=== PATIENT | male | born 1945 | race Two or more races ===

== ENCOUNTER 2016-09-14 19:37 | Observation (INO) | payer MEDICARE ==
--- NOTE | 2016-09-14 20:42 | C.PDOC ---
History Of Present Illness <Kailey Heller - Last Filed: 09/15/16 05:16> <Alber Pleitez - Last Filed: 09/17/16 18:14> 71 y/o male is brought to the ED by EMS for evaluation after he was found publicly intoxicated and covered in his own feces [employer]. Patient states he was supposed to go to work, but "instead I had a couple drinks and defecated on myself." He is resting comfortably in the ED while eating a sandwich. Patient has no physical complaints at this time. (Alber Pleitez) <Kailey Heller - Last Filed: 09/15/16 05:16> History Per: Patient History/Exam Limitations: intoxication Onset/Duration Of Symptoms: Unknown Current Symptoms Are (Timing): Still Present Suicide/Self Injury Attempted (Context): None Modifying Factor(s): Alcohol Associated Symptoms: denies: Suicidal Thoughts, Suicidal Plan Involuntary Hold By: None Recent travel outside of the [place]: No Additional History Per: Patient <Alber Pleitez - Last Filed: 09/17/16 18:14> Time Seen by Provider: 09/14/16 20:09 Chief Complaint (Nursing): Substance Abuse Past Medical History Reviewed: Historical Data, Nursing Documentation, Vital Signs - Medical History PMH: HTN Surgical History: No Surg Hx Family History: States: Unknown Family Hx - Social History Hx Tobacco Use: No (UNKNOWN) Hx Alcohol Use: Yes (UNKNOWN) Hx Substance Use: No (UNKNOWN) - Immunization History Hx Tetanus Toxoid Vaccination: No Hx Influenza Vaccination: No Hx Pneumococcal Vaccination: No <Alber Pleitez - Last Filed: 09/17/16 18:14> Vital Signs: Last Vital Signs Temp 98.6 F 09/15/16 05:39 Pulse 78 09/15/16 05:39 Resp 16 09/15/16 05:39 BP 130/70 09/15/16 05:39 Pulse Ox 100 09/15/16 05:39 Review Of Systems Constitutional: Negative for: Fever, Chills Cardiovascular: Negative for: Chest Pain, Palpitations Gastrointestinal: Negative for: Nausea, Vomiting, Abdominal Pain Neurological: Negative for: Weakness, Numbness <Alber Pleitez - Last Filed: 07/13/17 18:14> Physical Exam - Physical Exam Appears: Non-toxic, No Acute Distress Skin: Normal Color, Warm, Dry Head: Atraumatic, Normacephalic Eye(s): bilateral: Normal Inspection Oral Mucosa: Moist Neck: Supple Chest: Symmetrical, No Deformity, No Tenderness Cardiovascular: Rhythm Regular, No Murmur Respiratory: Normal Breath Sounds, No Rales, No Rhonchi, No Wheezing Gastrointestinal/Abdominal: Soft, No Tenderness, No Guarding, No Rebound Extremity: Normal ROM, Capillary Refill (less than 2 seconds ) Neurological/Psych: Normal Speech, Normal Cognition Gait: Steady <Alber Pleitez P - Last Filed: 09/17/16 18:14> ED Course And Treatment Pulse Ox Interpretation: Normal Reevaluation Time: 05:16 Reassessment Condition: Improved <Kailey Heller - Last Filed: 09/15/16 05:16> O2 Sat by Pulse Oximetry: 97 (on RA) Pulse Ox Interpretation: Normal <Alber Pleitez P - Last Filed: 09/17/16 18:14> ED OBSERVATION Discharge: Yes <Kailey Heller - Last Filed: 09/15/16 05:16> Date of observation admission: 09/14/16 Time of observation admission: 20:15 <Alber Pleitez P - Last Filed: 09/17/16 18:14> - Observation admission statement Patient is being placed in observation because:: etoh (Alber Pleitez) Disposition Counseled Patient/Family Regarding: Studies Performed, Diagnosis, Need For Followup - Disposition Disposition Time: 01:00 <Kailey Heller - Last Filed: 09/15/16 05:16> <Alber Pleitez P - Last Filed: 09/17/16 18:14> - Disposition Disposition: HOME/ ROUTINE Condition: FAIR - Clinical Impression Clinical Impression: Alcohol intoxication, Alcohol abuse <Kailey Heller - Last Filed: 09/15/16 05:16> - Scribe Statement The provider has reviewed the documentation as recorded by the Scribe (Giselle Mc) <Alber Pleitez P - Last Filed: 09/17/16 18:14> - Scribe Statement Provider Attestation: All medical record entries made by the Scribe were at my direction and personally dictated by me. I have reviewed the chart and agree that the record accurately reflects my personal performance of the history, physical exam, medical decision making, and the department course for this patient. I have also personally directed, reviewed, and agree with the discharge instructions and disposition. (Alber Pleitez) Physician Patient Turnover Patient Signed Over To: Kailey Heller Handoff Comments: pending sobriety <Alber Pleitez - Last Filed: 09/17/16 18:14>
[2016-09-15 05:45] VITALS: BP 130/70; PULSE 78; RESP 16; TEMP 98.6
[2016-09-17 18:14] VITALS: O2SAT 97
== END 2016-09-15 05:17 | disposition home or self-care (01) ==
LOC: C.ER 19:37 → C.9OBSV 20:15
PROVIDERS: ADMIT Emergency Medicine; ATTEND Emergency Medicine
DX: F10.129 Alcohol abuse with intoxication, unspecified (principal); I10 Essential (primary) hypertension
CPT/HCPCS: 82948; G0378

== ENCOUNTER 2017-10-07 13:58 | Emergency (ER) | payer MEDICARE ==
[2017-10-07 14:19] VITALS: BMI 29.0
[2017-10-07 14:20] VITALS: BP 164/93; PULSE 77; RESP 18; TEMP 98.5; O2SAT 97
[2017-10-07] MEDS ORDERED: Alum-Mag Hydrox-Simethicone Susp (30 mL) PO STA (14:52)
--- NOTE | 2017-10-07 14:53 | C.PDOC ---
History Of Present Illness 72 y/o male presents to the ED complaining of chronic axillary and groin lesions to the skin. Patient states occasionally the areas develop pustules that ooze. He does not squeeze them. He denies any foul odor, red streaking, fever, or chills. Patient is also requesting treatment for known history of reflux. States he has a history of chronic alcohol abuse but is limiting his drinking. Time Seen by Provider: 10/07/17 14:42 Chief Complaint (Nursing): Abnormal Skin Integrity History Per: Patient History/Exam Limitations: no limitations Onset/Duration Of Symptoms: Days Current Symptoms Are (Timing): Still Present Past Medical History Reviewed: Historical Data, Nursing Documentation, Vital Signs Vital Signs: Last Vital Signs Temp 98.5 F 10/07/17 14:19 Pulse 77 10/07/17 14:19 Resp 18 10/07/17 14:19 BP 164/93 H 10/07/17 14:19 Pulse Ox 97 10/07/17 14:53 - Medical History PMH: Diabetes, HTN Surgical History: No Surg Hx Family History: States: Unknown Family Hx - Social History Hx Tobacco Use: No (UNKNOWN) Hx Alcohol Use: Yes Hx Substance Use: No - Immunization History Hx Tetanus Toxoid Vaccination: No Hx Influenza Vaccination: No Hx Pneumococcal Vaccination: No Review Of Systems Except As Marked, All Systems Reviewed And Found Negative. Constitutional: Negative for: Fever, Chills Skin: Positive for: Lesions (to groin and axillary regions). Negative for: Rash Neurological: Negative for: Weakness, Numbness, Incoordination Physical Exam - Physical Exam Appears: Non-toxic, No Acute Distress Skin: Warm, Dry, Other (Small pustules in varying states of healing at bilateral groin and axillary regions) Head: Atraumatic, Normacephalic Eye(s): bilateral: Normal Inspection Oral Mucosa: Moist Neck: Normal ROM, Supple Chest: Symmetrical Cardiovascular: Rhythm Regular, No Murmur Respiratory: Normal Breath Sounds, No Accessory Muscle Use, No Wheezing Gastrointestinal/Abdominal: Soft, No Tenderness, No Distention Male Genital: No Inguinal Tenderness, No Inguinal Swelling, Other (No penile lesions, no hernia) Extremity: Bilateral: Atraumatic, Normal Color And Temperature, Normal ROM Pulses: Left Dorsalis Pedis: Normal, Right Dorsalis Pedis: Normal Neurological/Psych: Oriented x3, Normal Speech ED Course And Treatment O2 Sat by Pulse Oximetry: 97 (RA) Pulse Ox Interpretation: Normal Medical Decision Making Medical Decision Making: Impression: skin lesions, Hx of GERD Plan: --Maalox Plus --Pepcid occasional small pustules of b/l axilla and groin area NOT inguinal lymphadenopathy hygiene and maintaining dry educated no abx required at this time Rx for Reflux GERD educated. Disposition Doctor Will See Patient In The: Hospital Counseled Patient/Family Regarding: Studies Performed, Diagnosis - Disposition Referrals: [facility] [Outside] [facility] [Outside] [facility] [Outside] [facility] [Outside] Disposition: HOME/ ROUTINE Disposition Time: 14:52 Condition: GOOD Additional Instructions: Groin and Axilla: maintain clean and dry (use powders) do not squeeze small pustules- GERD: Pepcid 20 mg twice a day (9AM and 9PM) lowers stomach acid After one month lower to 20 mg @ night only. Maalox 30 cc's (one tablespoon) 5x per day for the first 3 days (between meals) , then as needed for Reflux discomfort GERD diet precautions Avoid alcohol use/abuse- provokes a terrible gastritis. Follow-up in our outpatient Family Practice [facility] in 2-3 months for re-eval. Instructions: Hidradenitis Suppurativa, Boil (DC), Acid Reflux ( Gastroesophageal Reflux Disease) in Adults Forms: [employer] (Mongolian) - Clinical Impression Clinical Impression: GERD (gastroesophageal reflux disease), Axillary abscess - Scribe Statement The provider has reviewed the documentation as recorded by the Scribe (Shefali Conde) Provider Attestation: All medical record entries made by the Scribe were at my direction and personally dictated by me. I have reviewed the chart and agree that the record accurately reflects my personal performance of the history, physical exam, medical decision making, and the department course for this patient. I have also personally directed, reviewed, and agree with the discharge instructions and disposition.
[2017-10-07] MEDS ORDERED: Aluminum Hydroxide/Magnesium Hydroxide Susp (30 mL) ONE (14:59)
== END 2017-10-07 15:08 | disposition home or self-care (01) ==
LOC: C.ER 13:58
DX: L02.412 Cutaneous abscess of left axilla (principal); L02.411 Cutaneous abscess of right axilla; K21.9 Gastro-esophageal reflux disease without esophagitis